=== PATIENT | male | born 1940 | race Caucasian/White ===

== ENCOUNTER 2018-02-05 11:05 | Observation (INO) | payer MEDICARE, OTHER ==
[~2018-02-05] VITALS: Ht 170.2 cm; Wt 107.8 kg
[2018-02-05] VITALS (7 sets, daily range): BP systolic 151–210; BP diastolic 59–84; PULSE 42–70; TEMP 97–97.7
[2018-02-05] MEDS ORDERED: TENORMIN 2525 MG/TAB PO (12:14)
[2018-02-05] MEDS ORDERED: ZESTRIL40 MG PO (12:14)
[2018-02-05] MEDS ORDERED: ASPIRIN E.C. 8181 MG PO (12:15)
[2018-02-05] MEDS ORDERED: MOBIC15 MG PO (12:15)
[2018-02-05 12:17] LABS: HEMATOCRIT 41.4 % (42.0-52.0); HEMOGLOBIN 14.1 g/dl (13.5-18.0); MEAN CELL VOLUME 96 fl (80.0-100.0); MEAN CORPUSCULAR HEMOGLOBIN 33 pg (27.0-31.0); MEAN CORPUSCULAR HGB CONC 34 g/dl (33.0-37.0); MEAN PLATELET VOLUME 8.6 fl (7.4-10.4); PLATELET COUNT 256 K/mm3 (130-400); RED BLOOD COUNT 4.32 M/mm3 (4.20-5.60); REDCELL DISTRIBUTION WIDTH-CV 11.9 % (11.5-14.5)
[2018-02-05 12:22] LABS: INR 1.1 (0.8-3.0); PROTHROMBIN TIME 12.3 SECONDS (9.7-12.8)
[2018-02-05 12:32] LABS: CALCIUM 9.5 mg/dL (8.4-10.2); CREATININE, serum 0.75 mg/dL (0.66-1.25); POTASSIUM 4.7 mmol/L (3.4-5.0)
[2018-02-05] MEDS ORDERED: DEMADEX 20MG20 M1 PO (15:08)
[2018-02-05] MEDS ORDERED: PRINIVIL40 MG PO (15:08)
[2018-02-06 00:10] VITALS: PULSE 68
[2018-02-06 04:20] VITALS: BP 122/70; BP 148/64; PULSE 62; PULSE 64; TEMP 98.2; TEMP 98.4
[2018-02-06 07:03] VITALS: BP 174/68; PULSE 59; TEMP 97.8
[2018-02-06 11:38] VITALS: BP 182/62; PULSE 59; TEMP 98.6
[2018-02-06] MEDS ORDERED: LIPITOR20 MG PO (13:47)
[2018-02-06] MEDS ORDERED: NORVASC 5MG5 MG/TAB PO (13:47)
[2018-02-06] MEDS ORDERED: PRINIVIL40 MG PO (13:48)
[2018-02-06] MEDS ORDERED: TYLENOL 325MG325 MG PO (13:49)
== END 2018-02-06 14:59 | disposition home or self-care (01) ==
LOC: SDCO 11:05 → EDSTATUS 11:06 → MEDICAL 15:38 → SDCO 15:39 → MEDICAL 02-06 14:59
PROVIDERS: Internal Medicine Cardiovascular Disease
DX: I49.5 Sick sinus syndrome (principal); I44.1 Atrioventricular block, second degree; I10 Essential (primary) hypertension; E78.5 Hyperlipidemia, unspecified; G47.33 Obstructive sleep apnea (adult) (pediatric); Z79.82 Long term (current) use of aspirin; Z96.652 Presence of left artificial knee joint; Z88.8 Allergy status to other drugs, medicaments and biological substances
CPT/HCPCS: C1785; C1894; C1898; G0378; G0379; J0690; J1200; J2250; J3010; J7030; Q9967

== ENCOUNTER 2020-09-26 14:13 | Day surgery (SDC) | payer MEDICARE ==
[2020-09-26] VITALS (9 sets, daily range): BP systolic 126–155; BP diastolic 66–85; PULSE 59–78; TEMP 98.2
[~2020-09-26] VITALS: Ht 170.2 cm; Wt 110.1 kg
[2020-09-26 13:47] LABS: HEMATOCRIT 37.9 % (42.0-52.0); HEMOGLOBIN 12.9 g/dl (13.5-18.0); MEAN CELL VOLUME 96 fl (80.0-100.0); MEAN CORPUSCULAR HEMOGLOBIN 33 pg (27.0-31.0); MEAN CORPUSCULAR HGB CONC 34 g/dl (33.0-37.0); MEAN PLATELET VOLUME 8.3 fl (7.4-10.4); PLATELET COUNT 270 K/mm3 (130-400); RED BLOOD COUNT 3.97 M/mm3 (4.20-5.60); REDCELL DISTRIBUTION WIDTH-CV 11.9 % (11.5-14.5)
[2020-09-26 13:59] LABS: CALCIUM 9.5 mg/dL (8.4-10.2); CREATININE, serum 0.67 (0.66-1.25); POTASSIUM 4.4 mmol/L (3.4-5.0)
[~2020-09-26 14:13] MED LIST: ASPIRIN E.C. 8181 MG PO; DEMADEX 20MG20 M1 PO; LIPITOR20 MG PO; MOBIC15 MG PO; NORVASC 5MG5 MG/TAB PO; PRINIVIL40 MG PO; TENORMIN 2525 MG/TAB PO; TYLENOL 325MG325 MG PO; ZESTRIL40 MG PO
[2020-09-26 14:52] LABS: INR 1.1 (0.8-3.0); PROTHROMBIN TIME 12.6 SECONDS (9.7-12.8)
--- NOTE | 2020-09-26 15:15 | NUR ---
PT IS BACK [facility]. PT IS ALERT, TR BAND TO RT WRIST, CMS INTACT DISTAL. V-PACED ON MONITOR. PT AND UPDATED ON POC. LUNCH ORDERED. CALL LIGHT IN REACH.
--- NOTE | 2020-09-26 18:12 | NUR ---
PT is ready for departure. TR band has been deflated with no problem. site dressed with bandaid, folded 2x2 and coban. cms remains intact distal. iv dc'd with cath intact. pt up ambulatory to br and in room with steady gait. I reviewed dc instructions with pt and his . no questions or concerns at time of departure. to exit via wheelchair.
== END 2020-09-26 19:02 | disposition home or self-care (01) ==
LOC: COL.CAR 14:13
PROVIDERS: Internal Medicine Interventional Cardiology
DX: R07.9 Chest pain, unspecified (principal); R94.39 Abnormal result of other cardiovascular function study; I48.91 Unspecified atrial fibrillation; G47.33 Obstructive sleep apnea (adult) (pediatric)
CPT/HCPCS: C1769; J1644; J2250; J3010; Q9967